=== PATIENT | male | born 1960 | race Hispanic/Latino ===

== ENCOUNTER 2017-07-22 12:34 | Emergency (ER) | payer MEDICAID ==
[2017-07-22 12:34] VITALS: BMI 42.7
[2017-07-22] MEDS ORDERED: TDAP Vaccine 0.5 mL Syr IM ONE (12:54)
[2017-07-22] MEDS ORDERED: Lidocaine 1% w Epi 1:100,000 Inj IJ STA (12:54)
[2017-07-22 13:02] VITALS: TEMP 99
[2017-07-22 13:19] LABS: BASO # 0.02 K/mm3 (0.0-2.0); BASO % 0.3 % (0.0-3.0); EOS # 0.2 (0.0-0.7); EOS % 2.6 % (1.5-5.0); GRAN # 4.88 (1.4-6.5); GRAN % 67.7 % (50.0-68.0); HEMOGLOBIN 16.6 g/dL (14.0-18.0); LYMPH # 1.8 (1.2-3.4); LYMPH % 24.4 % (22.0-35.0); MEAN CELL VOLUME 89.3 fl (80.0-105.0); MEAN CORPUSCULAR HEMOGLOBIN 31.9 pg (25.0-35.0); MEAN CORPUSCULAR HGB CONC 35.7 g/dl (31.0-37.0); MEAN PLATELET VOLUME 8.9 fl (7.0-11.0); MONO # 0.4 (0.1-0.6); RBC 5.21 10^6/uL (3.5-6.1); RED CELL DISTRIBUTION WIDTH 12.9 % (11.5-14.5); WHITE BLOOD COUNT 7.2 10^3/ul (4.5-11.0)
[2017-07-22 13:29] LABS: INR 1.04 (0.93-1.08); PARTIAL THROMBOPLASTIN TIME 27.6 Seconds (25.1-36.5)
[2017-07-22] MEDS ORDERED: Lidocaine/Epi 1% 1:100000 20 ML IJ STA (13:29)
--- NOTE | 2017-07-22 13:48 | ED PDOC ---
Arrival/HPI - General Historian: Patient - History of Present Illness Time/Duration: Prior to Arrival Symptom Onset: Sudden Context: Work <Mario Castellano - Last Filed: 07/22/17 13:44> <Sai Keith - Last Filed: 07/22/17 15:01> - General Time Seen by Provider: 07/22/17 12:48 - History of Present Illness Narrative History of Present Illness (Text): 07/22/17 13:20 56 year old male, whose PMH includes HTN, COPD, and diabetes, who presents to the emergency department complaining of laceration on left arm prior to arrival. Patient reports he was using a machine at work when it fell on his arm causing a cut. Patient immediately applied pressure due to being on blood thinners. No other complaints were made. (Mario Castellano) Past Medical History - Provider Review Nursing Documentation Reviewed: Yes - Tetanus Immunization Tetanus Immunization: Never Received Tetanus Vaccine - Cardiac Hx Hypertension: Yes - Pulmonary Hx Chronic Obstructive Pulmonary Disease (COPD): Yes - Neurological Hx Seizures: Yes - Endocrine/Metabolic Hx Diabetes Mellitus Type 1: Yes - Psychiatric Hx Depression: Yes Hx Substance Use: No - Past Surgical History Past Surgical History: No Previous - Suicidal Assessment Feels Threatened In Home Enviroment: No <Mario Castellano - Last Filed: 07/22/17 13:44> Family/Social History - Physician Review Nursing Documentation Reviewed: Yes Family/Social History: Unknown Family HX Smoking Status: Never Smoked Hx Alcohol Use: No Hx Substance Use: No Hx Substance Use Treatment: No <Mario Castellano - Last Filed: 07/22/17 13:44> Allergies/Home Meds <Mario Castellano - Last Filed: 07/22/17 13:44> <Sai Keith - Last Filed: 07/22/17 15:01> Allergies/Adverse Reactions: Allergies Penicillins Allergy (Verified 09/16/15 12:18) ANAPHYLAXIS inhaler steroids Allergy (Uncoded 09/16/15 12:18) ANGIOEDEMA Review of Systems - Physician Review All systems were reviewed & negative as marked: Yes - Review of Systems Constitutional: absent: Fevers Respiratory: absent: SOB Cardiovascular: absent: Chest Pain Skin: Laceration (left arm laceration ) <Mario Castellano - Last Filed: 07/22/17 13:44> Physical Exam Vital Signs Reviewed: Yes Temperature: Afebrile Blood Pressure: Normal Pulse: Regular Respiratory Rate: Normal Appearance: Positive for: Well-Appearing, Non-Toxic, Comfortable Pain Distress: None Mental Status: Positive for: Alert and Oriented X 3 Finger Stick Blood Glucose: 325 - Systems Exam Head: Present: Atraumatic, Normocephalic Pupils: Present: PERRL Extroacular Muscles: Present: EOMI Conjunctiva: Present: Normal Mouth: Present: Moist Mucous Membranes Neurological: Present: GCS=15, CN II-XII Intact, Speech Normal Skin: Present: Warm, Dry, Normal Color, Laceration (4cm angulated laceration on dorsal aspect of left forearm ). No: Rashes Psychiatric: Present: Alert, Oriented x 3, Normal Insight, Normal Concentration <GaryMario L - Last Filed: 07/22/17 13:44> - Systems Exam Skin: Present: Laceration <Sai Keith - Last Filed: 07/22/17 15:01> Vital Signs Temp Pulse Resp BP Pulse Ox 07/22/17 13:00 99 F 70 18 128/68 97 Medical Decision Making <Mario Castellano - Last Filed: 07/22/17 13:44> Re-evaluation Time: 14:59 Reassessment Condition: Improved <Sai Keith - Last Filed: 07/22/17 15:01> ED Course and Treatment: 07/22/17 Impression: 56 year old male with 4cm angulated laceration on dorsal aspect of left forearm Differential Diagnosis included but are not limited to: laceration Plan: -- Lidocaine and Tetanus -- Reassess and disposition Progress Notes: (Mario Castellano) 07/22/17 14:57 Laceration repair - Inside: two 4-0 Vicryl sutures - Outside: seven 5-0 Prolene sutures - 10 mL of Lidocaine with Epi used Patient tolerated procedure well. (Sai Ketih) - Lab Interpretations Lab Results: 07/22/17 13:00 Lab Results 07/22/17 13:03: POC Glucose (mg/dL) 326 H 07/22/17 13:00: PT 12.0, INR 1.04, APTT 27.6 07/22/17 13:00: WBC 7.2, RBC 5.21, Hgb 16.6, Hct 46.5, MCV 89.3, MCH 31.9, MCHC 35.7, RDW 12.9, Plt Count 160, MPV 8.9, Gran % 67.7, Lymph % (Auto) 24.4, [place] % (Auto) 5.0, Eos % (Auto) 2.6, Baso % (Auto) 0.3, Gran # 4.88, Lymph # (Auto) 1.8, [place] # (Auto) 0.4, Eos # (Auto) 0.2, Baso # (Auto) 0.02 - Medication Orders Current Medication Orders: Discontinued Medications Lidocaine/Epinephrine (Lidocaine/Epi 1% 1:[id number] 20 Ml) 0 ml IJ STAT STA Stop: 07/22/17 13:30 Tetanus/Reduced Diphtheria/Acell Pertussis (Boostrix Vaccine Inj) 0.5 ml IM .ONCE ONE Stop: 07/22/17 12:55 Last Admin: 07/22/17 13:15 Dose: 0.5 ml [facility] Immunization Data Document 07/22/17 13:15 CHETAN (Rec: 07/22/17 13:15 [facility] [id number]) Immunization Data Vaccine Information Sheet Given No - Scribe Statement The provider has reviewed the documentation as recorded by the Scribe <Mario Castellano - Last Filed: 07/22/17 13:44> <Sai Keith - Last Filed: 07/22/17 15:01> - Scribe Statement Melissa Murphy Provider Scribe Attestation: All medical record entries made by the Scribe were at my direction and personally dictated by me. I have reviewed the chart and agree that the record accurately reflects my personal performance of the history, physical exam, medical decision making, and the department course for this patient. I have also personally directed, reviewed, and agree with the discharge instructions and disposition. (Mario Castellano) Disposition/Present on Arrival - Present on Arrival History of DVT/PE: No History of Uncontrolled Diabetes: Yes Urinary Catheter: No History Surgical Site Infection Following: None <Mario Castellano - Last Filed: 07/22/17 13:44> - Present on Arrival Any Indicators Present on Arrival: Yes - Disposition Have Diagnosis and Disposition been Completed?: Yes Disposition Time: 15:01 Patient Plan: Discharge <SagarSai - Last Filed: 07/22/17 15:01> - Disposition Diagnosis: Laceration of left forearm Disposition: HOME/ ROUTINE Patient Problems: Current Active Problems Problem Status Onset Laceration of left forearm Acute Condition: GOOD Additional Instructions: Patient is to be discharged home. Patient states he has an appointment with his primary care physician, Dr. Perez, today at 5pm. He is to keep laceration area clean. Do not directly scrub the laceration site. Patient is to have the repair evaluated in 10-14 days for removal of sutures. If patient experiences any new or concerning symptoms, please go directly to the nearest emergency room. Prescriptions: Sulfamethoxazole/Trimethoprim [Bactrim DS 800 mg-160 mg] 1 tab PO DAILY #7 tab Referrals: Flavio Perez DO [Primary Care Provider] - Follow up with primary
[2017-07-22 15:36] VITALS: BP 145/74; PULSE 92; RESP 16; O2SAT 98
--- NOTE | 2017-07-22 18:52 | PCM.PROC ---
Procedures Attestation:: I certify that I have explained the specified Operation(s) or Procedure(s), risks, benefits and reasonable alternatives to the Patient and/or other person responsible. The opportunity was given to ask questions and all questions answered - Laceration with EPI involves muscle layer contaminated irrigated extensively left upper extremity 4-0 vicryl simple, interrupted Site: upper extremity (forearm) Side (if applicable): left Size (cm): 4 Description: other (angular - U shaped) Depth: simple, single layer Anesthesia used: lidocaine 1%, with EPI Anesthesia technique: local infiltration Amount (mLs): 10 Pre-repair: wound explored, irrigated extensively Skin layer closed with: other (prolene) Size: 5-0 Number of sutures: 7 Technique: simple, interrupted Subcutaneous layer closed with: vicryl Size: 4-0 Number of sutures: 2 Technique: simple, interrupted
== END 2017-07-22 16:50 | disposition home or self-care (01) ==
LOC: ED 12:34
DX: S51.812A Laceration without foreign body of left forearm, initial encounter (principal); W31.89XA Contact with other specified machinery, initial encounter; Y92.89 Other specified places as the place of occurrence of the external cause; Y99.8 Other external cause status; E11.9 Type 2 diabetes mellitus without complications; Z79.01 Long term (current) use of anticoagulants; Z23 Encounter for immunization

== ENCOUNTER 2017-08-25 13:08 | Emergency (ER) | payer MEDICAID ==
[2017-08-25 13:11] VITALS: BMI 36.3
[2017-08-25 13:17] VITALS: RESP 18
--- NOTE | 2017-08-25 14:43 | ED PDOC ---
Arrival/HPI - General Chief Complaint: Trauma Time Seen by Provider: 08/25/17 14:25 Historian: Patient - History of Present Illness Narrative History of Present Illness (Text): 08/25/17 14:25 A 56 year old male, whose past medical history includes hypertension and diabetes type 1, presents to the emergency department complaining of s/p fall. Patient reports he was at a convenient store attempting to get lunch when suddenly got right foot caught and fell forward. pt states he fell forward and with right arm outstretched. 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 He decided to arrive at the ER for further evaluation. Notes obtaining frontal head injury and experiencing dizziness/lightheadedness, right shoulder pain that worsens with movement, as well as right wrist/elbow discomfort. Patient denies any LOC, neck pain, vision deficits, fever, chills, chest pain, shortness of breath, palpitations, abdominal pain, nausea, vomiting, urinary symptoms, numbness/tingling, pre/post syncope, or any other complaints at this time. pt is here for further eval Patient is right hand dominant and had last tetanus shot 4 weeks ago. PMD: Dr. Perez Time/Duration: Prior to Arrival Symptom Onset: Sudden Symptom Course: Unchanged Severity Level: Severe Activities at Onset: Other (walking) Context: Other (at a local convienent store) Past Medical History - Provider Review Nursing Documentation Reviewed: Yes - Travel History Have you recently traveled outside [place] w/in the past 3 mons?: No - Past History Past History: No Previous - Infectious Disease Hx of Infectious Diseases: None - Tetanus Immunization Tetanus Immunization: Never Received Tetanus Vaccine - Cardiac Hx Hypertension: Yes - Pulmonary Hx Chronic Obstructive Pulmonary Disease (COPD): Yes - Neurological Hx Seizures: Yes - Endocrine/Metabolic Hx Diabetes Mellitus Type 1: Yes - Psychiatric Hx Depression: Yes Hx Substance Use: No - Past Surgical History Past Surgical History: No Previous - Anesthesia Hx Anesthesia Reactions: No - Suicidal Assessment Feels Threatened In Home Enviroment: No Family/Social History - Physician Review Nursing Documentation Reviewed: Yes Family/Social History: No Known Family HX Smoking Status: Never Smoked Hx Alcohol Use: No Hx Substance Use: No Hx Substance Use Treatment: No Allergies/Home Meds Allergies/Adverse Reactions: Allergies Penicillins Allergy (Verified 09/16/15 12:18) ANAPHYLAXIS inhaler steroids Allergy (Uncoded 09/16/15 12:18) ANGIOEDEMA Home Medications: Home Meds Medication Instructions Recorded Confirmed Atorvastatin [Lipitor] 1 tab PO HS 08/25/17 08/25/17 Celecoxib [Celebrex] 1 tab PO DAILY 08/25/17 08/25/17 Clopidogrel [Plavix] 1 tab PO DAILY 08/25/17 08/25/17 Divalproex [Depakote ER] 1 tab PO DAILY 08/25/17 08/25/17 Gabapentin [Neurontin] 1 tab PO TID 08/25/17 08/25/17 Metoprolol Tartrate [Lopressor] 1 tab PO BID 08/25/17 08/25/17 Sertraline [Zoloft] 1 tab PO DAILY 08/25/17 08/25/17 Zolpidem [Ambien] 1 tab PO HS 08/25/17 08/25/17 Review of Systems - Physician Review All systems were reviewed & negative as marked: Yes - Review of Systems Constitutional: absent: Fevers, Night Sweats Eyes: absent: Vision Changes ENT: Normal Respiratory: absent: SOB Cardiovascular: absent: Chest Pain, Palpitations, Syncope (pre/post) Gastrointestinal: absent: Abdominal Pain, Nausea, Vomiting Genitourinary Male: absent: Dysuria, Frequency, Hematuria, Urinary Output Changes Musculoskeletal: Other (right shoulder pain (worse with movement); right wrist and right elbow discomfort). absent: Neck Pain Neurological: Headache, Dizziness. absent: Other (no LOC; no numbness/tingling) Endocrine: Normal Hemo/Lymphatic: Normal Psychiatric: Normal Physical Exam - Physical Exam Narrative Physical Exam (Text): 08/25/17 1425 General: alert/awake, GCS = 15, oriented x 3, sittingon bed, uncomfortable, cooperative, interactive; NAD Head: NC/AT; no gross deformities, no open wounds/lesions noted EYE: PERRLA, EOMI, sclera anicteric, no nystagmus, no photophobia; visual field intact b/l Facial: WNL Oral: uvula/tongue are midline, no exudate/lesions, no drooling/stridor, no dysphonia; poor dentitions; moist oral mucosa NECK: intact ROM, no midline tenderness, no nuchal rigidity, no meningeal signs ; no step off Chest: CTA b/l, no w/r/r; no tachypenia, no accessory muscle use noted Chest Wall: no focal tenderness, no gross deformities, no crepitus, no lesions/ rashes noted Cardiac: +S1, +S2, no m/r/r, no tachycardia Abdominal: +BS, soft/nd/nt, well nourished/obese patient; no masses/rebound/ guarding/rigidity; no jean's sign, no mcburney's point tenderness Extremities: intact ROM except right shoulder, decr on full extension, + diffuse right lateral/shoulder tenderness; strength 5/5 grossly intact in all limbs, neurovasc intact b/l; + ambulatory; reflex +2/2; no crepitus noted BACK: no step off, no midline tenderness, NO crepitus, no gross deformities noted; Intact ROM SKIN: cap refill ~ 1 sec, no ulcerations, no petechiae, no rashes; no gross pallor, no open sores/lesions noted NEURO: CNII-XII WNL, no facial asymmetries, no slurr speech, oriented x 3 NIH stroke scale ~ 0 Psych: normal insight, normal affect; follows command with ease Vital Signs Reviewed: Yes Vital Signs Temp Pulse Resp BP Pulse Ox 08/25/17 16:15 79 18 128/77 99 08/25/17 13:16 99 F 90 18 94/66 L 97 Temperature: Afebrile Blood Pressure: Normal Pulse: Regular Respiratory Rate: Normal Appearance: Positive for: Well-Appearing, Non-Toxic, Uncomfortable. No: Ill- Appearing, Unkept Pain Distress: None Mental Status: Positive for: Alert and Oriented X 3 - Systems Exam Head: Present: Atraumatic, Normocephalic Medical Decision Making ED Course and Treatment: 08/25/17 14:30 Impression: 56 year old male with s/p fall, right shoulder pain worse with movement, right wrist/elbow discomfort, and dizziness. r/o bleed, r/o fx/dislocation Plan: -- Head CT -- Right Elbow X-Ray -- Right Shoulder X-Ray -- Right Wrist X-Ray -- Valium -- Motrin -- Reassess and disposition Progress Notes: 1515 pt is doing well currently + still with some pain pt is awaiting Ct/xray results 08/25/17 16:52 pt is doing well pt is comfortable oriented x 3 pt remained at baseline mental status pt is made aware of his medical results pt is encouraged RICE txt pt is encouraged min weight bearing pt is encouraged keeping right arm in sling for comfort pt will f/u as directed pt will be discharged home Re-evaluation Time: 16:37 Reassessment Condition: Improving,but remains with symptoms - RAD Interpretation Narrative RAD Interpretations (Text): 08/25/2017 15:39 Right Wrist X-Ray IMPRESSION: Normal right wrist radiographs. Dictator: Curtis Taylor MD 08/25/2017 15:39 Right Elbow X-Ray IMPRESSION: Unremarkable radiographs of the right elbow. Dictator: Curtis Taylor MD 08/25/2017 15:41 Right Shoulder X-Ray IMPRESSION: Normal radiographs of the right shoulder. Dictator: Curtis Taylor MD 08/25/2017 15:[address] IMPRESSION: No acute findings. Dictator: Curtis Taylor MD Radiology Orders: 08/25/17 14:30 HEAD W/O CONTRAST [CT] Stat 08/25/17 14:31 ELBOW RIGHT 3 VIEWS ROUTINE [RAD] Stat SHOULDER RIGHT [RAD] Stat 08/25/17 14:32 WRIST, RIGHT 3 VIEWS [RAD] Stat Supply Chain Engineer: Radiologist - Medication Orders Current Medication Orders: Discontinued Medications Diazepam (Valium) 5 mg PO ONCE ONE PRN Reason: Protocol Stop: 08/25/17 14:31 Last Admin: 08/25/17 14:36 Dose: 5 mg Ibuprofen (Motrin Tab) 600 mg PO STAT STA Stop: 08/25/17 14:31 Last Admin: 08/25/17 14:36 Dose: 600 mg MAR Pain/Vitals Document 08/25/17 14:36 OCS (Rec: 08/25/17 14:36 OCS [id number]) Pain Reassessment Is This A Pain ReAssessment? Yes Sleep Is patient sleeping during reassessment? No Presence of Pain Presence of Pain Yes Pain Scale Used Pain Scale Used Numeric Location Left, Right or Bilateral Right Pain Location Body Site Chest Description Constant Intensity 10 Scale Used Numeric Aggravating Factors ADL's - Scribe Statement The provider has reviewed the documentation as recorded by the Clifibtriny Infante Provider Scribe Attestation: All medical record entries made by the Scribe were at my direction and personally dictated by me. I have reviewed the chart and agree that the record accurately reflects my personal performance of the history, physical exam, medical decision making, and the department course for this patient. I have also personally directed, reviewed, and agree with the discharge instructions and disposition. Disposition/Present on Arrival - Present on Arrival Any Indicators Present on Arrival: No History of DVT/PE: No History of Uncontrolled Diabetes: Yes Urinary Catheter: No History of Decub. Ulcer: No History Surgical Site Infection Following: None - Disposition Have Diagnosis and Disposition been Completed?: Yes Diagnosis: Closed head injury, Concussion, Contusion of arm, right, multiple sites Disposition: HOME/ ROUTINE Disposition Time: 16:38 Patient Plan: Discharge Patient Problems: Current Active Problems Problem Status Onset Closed head injury Acute Concussion Acute Contusion of arm, right, multiple sites Acute Condition: STABLE Discharge Instructions (ExitCare): Concussion in Adults, Closed Head Injury, Shoulder Pain (DC) Print Language: LITHUANIAN Additional Instructions: Make sure to see your doctor in 1-2 days DRINK PLENTY OF FLUIDS take your medications as prescribed ICE right shoulder/elbow/wrist 15min/hr over the next week keep your arm in sling NO heavy lifting NO repetitive movements RETURN TO ED IF worse pain, cant breath, persistent vomiting, high fever >101- 102 for hours, altered behavior, slurr speech, facial changes, focal weakness ( arm/leg or both), unable to urinate, heavy/persistent bleeding, passing out, chest pain, or other medical emergencies Prescriptions: diaZEpam [Valium] 5 mg PO TID PRN #10 tab PRN Reason: Muscle Spasm Ibuprofen [Motrin] 400 mg PO QID PRN #30 tab PRN Reason: Pain, Mild (1-3) oxyCODONE/Acetaminophen [Percocet 5/325 mg Tab] 1 tab PO TID PRN #12 tab PRN Reason: Pain, Moderate (4-7) Referrals: Flavio Perez DO [Primary Care Provider] - Follow up with primary Ana Esquivel MD [Staff Provider] - Follow up with primary Forms: IceWE[employer] (Arabic)
--- NOTE | 2017-08-25 15:41 | RAD ---
PROCEDURE: Right Wrist Radiographs. HISTORY: fall, right arm pain COMPARISON: None. FINDINGS: BONES: Normal. No fracture. JOINTS: Normal. No dislocation. SOFT TISSUES: Normal. OTHER FINDINGS: None. IMPRESSION: Normal right wrist radiographs.
--- NOTE | 2017-08-25 15:41 | RAD ---
PROCEDURE: Radiographs of the right elbow. HISTORY: right arm pain COMPARISON: No prior. FINDINGS: BONES: Normal. No fracture. JOINTS: Normal. No osteoarthritis. SOFT TISSUES: Normal. JOINT EFFUSION: None. OTHER FINDINGS: None. IMPRESSION: Unremarkable radiographs of the right elbow.
--- NOTE | 2017-08-25 15:43 | RAD ---
PROCEDURE: Radiographs of the Right Shoulder HISTORY: fall, right shoulder injury/arm injury COMPARISON: No prior. FINDINGS: BONES: Normal. No fracture. JOINTS: Normal. Glenohumeral and acromioclavicular joints preserved. No osteoarthritis. SOFT TISSUES: Normal. OTHER FINDINGS: None. IMPRESSION: Normal radiographs of the right shoulder.
--- NOTE | 2017-08-25 15:44 | CT ---
PROCEDURE: CT HEAD WITHOUT CONTRAST. HISTORY: head injury, fall, no loc COMPARISON: None available. TECHNIQUE: Axial computed tomography images were obtained through the head/brain without intravenous contrast. Radiation dose: Total exam DLP = 981 mGy-cm. This CT exam was performed using one or more of the following dose reduction techniques: Automated exposure control, adjustment of the mA and/or kV according to patient size, and/or use of iterative reconstruction technique. FINDINGS: HEMORRHAGE: No intracranial hemorrhage. BRAIN: No mass effect or edema. No atrophy or chronic microvascular ischemic changes. VENTRICLES: Unremarkable. No hydrocephalus. CALVARIUM: Unremarkable. PARANASAL SINUSES: Unremarkable as visualized. No significant inflammatory changes. MASTOID AIR CELLS: Unremarkable as visualized. No inflammatory changes. OTHER FINDINGS: None. IMPRESSION: No acute findings
[2017-08-25 16:16] VITALS: BP 128/77; PULSE 79; O2SAT 99
[2017-08-25 17:34] VITALS: TEMP 98.9
== END 2017-08-25 17:00 | disposition home or self-care (01) ==
LOC: ED 13:08
DX: S06.0X0A Concussion without loss of consciousness, initial encounter (principal); S40.021A Contusion of right upper arm, initial encounter; W01.0XXA Fall on same level from slipping, tripping and stumbling without subsequent striking against object, initial encounter; Y92.512 Supermarket, store or market as the place of occurrence of the external cause

== ENCOUNTER 2018-04-22 10:19 | Outpatient (CLI) | payer MEDICAID | END 2018-04-22 10:20 | disposition home or self-care (01) | LOC: RAD 10:19 ==